=== PATIENT | male | born 1950 | race Caucasian/White ===

== ENCOUNTER → 2017-01-09 | Outpatient (REF) ==
--- NOTE | 2017-01-09 16:42 | REP ---
Chest two views HISTORY: Pneumonia Comparison: None The lungs are clear. The heart is upper limits of normal in size. The pulmonary vasculature is normal in appearance. The bony structure is intact. IMPRESSION: No acute disease. Signed by Kristopher Flores MD 01/09/2017 04:34 P
== END ==
LOC: M RAD 15:42
PROVIDERS: ATTEND Nurse Practitioner Family
DX: R05 Cough (principal)

== ENCOUNTER → 2024-07-16 | Outpatient (REF) | payer OTHER ==
[2024-07-16 14:14] LABS: CREATININE FOR GFR 1.16 MG/DL (0.70-1.30); GLOMERULAR FILTRATION RATE 65.7 (>42)
== END ==
LOC: M LABDRWAD 12:47
PROVIDERS: ATTEND Neurological Surgery
DX: Z79.82 Long term (current) use of aspirin (principal); Z79.02 Long term (current) use of antithrombotics/antiplatelets; Z79.01 Long term (current) use of anticoagulants